=== PATIENT | female | born 1980 | race Two or more races ===

== ENCOUNTER 2022-01-26 08:30 | Outpatient (CLI) | payer OTHER ==
[~2022-01-26 08:30] MED LIST: ACCUNEB0.63 MG/3; AMBIEN10 MG PO; ATIVAN2 M1 PO; BUTALBITAL25 GM PO; CATAPRES0.2 MG PO; LANTUS100 U/ML SQ; LITE COAT ASPI325 MG PO; NEURONTIN300 MG PO; PRILOSEC20 MG PO; REGLAN5 MG/5 ML PO; RELION HUM100 UNIT/1 SQ; RYBIX ODT50 MG PO; ZANTAC300 MG PO; ZOCOR40 MG PO
== END 2022-01-26 08:31 | disposition home or self-care (01) ==
LOC: NUCLEAR 08:30
DX: K31.84 Gastroparesis (principal); Z88.8 Allergy status to other drugs, medicaments and biological substances; Z91.013 Allergy to seafood
CPT/HCPCS: 78264; A9541